=== PATIENT | male | born 1940 | race Caucasian/White ===

== ENCOUNTER → 2017-01-08 | Outpatient (REF) | payer OTHER | LOC: M LABNEURO 17:14 | PROVIDERS: ATTEND Psychiatry & Neurology Neurology | DX: R53.1 Weakness (principal) ==

== ENCOUNTER → 2017-02-19 | Outpatient (REF) | payer OTHER ==
[2017-02-19 14:12] LABS: TOTAL PROTEIN,RANDOM URINE 31.3 MG/DL (0.0-12.0)
== END ==
LOC: M LAB REF 13:33
DX: R80.9 Proteinuria, unspecified (principal); N18.3 Chronic kidney disease, stage 3 (moderate)

== ENCOUNTER → 2017-02-19 | Outpatient (REF) | payer OTHER ==
[2017-02-19 20:17] LABS: TOTAL PROTEIN,RANDOM URINE 31.3 MG/DL (0.0-12.0); URINE TOTAL PROTEIN 31.3 MG/DL (0-12)
[2017-02-19 20:32] LABS: TOTAL PROTEIN 7.9 GM/DL (6.4-8.2)
[2017-02-20 11:53] LABS: ALBUMIN 4.41 GM/DL (3.29-5.55); ALBUMIN % 55.8 % (55.8-66.1); ALPHA-1-GLOBULIN % 5.4 % (2.9-4.9); ALPHA-1-GLOBULINS 0.43 GM/DL (0.17-0.41); ALPHA-2-GLOBULINS 1.07 GM/DL (0.42-0.99); ALPHA-2-GLOBULINS % 13.6 % (7.1-11.8); BETA-1-GLOBULINS 0.56 GM/DL (0.28-0.60); BETA-1-GLOBULINS % 7.1 % (4.7-7.2); BETA-2-GLOBULINS 0.51 GM/DL (0.19-0.55); BETA-2-GLOBULINS % 6.5 % (3.2-6.5); GAMMA GLOBULIN % 11.6 % (11.1-18.8); GAMMA GLOBULINS 0.92 GM/DL (0.65-1.58)
[2017-02-20 13:25] LABS: UPEP INTERPRETATION NO M-SPIKE NOTED; URINE VOLUME RANDOM ML
== END ==
LOC: M LAB REF 17:38
DX: N18.3 Chronic kidney disease, stage 3 (moderate) (principal); R80.9 Proteinuria, unspecified; E83.52 Hypercalcemia
CPT/HCPCS: 84165

== ENCOUNTER → 2017-08-12 | Outpatient (REF) | payer OTHER ==
[2017-08-12 20:00] LABS: FERRITIN 344 NG/ML (26-388); IRON (FE) 88 UG/DL (65-175); PERCENT SATURATION 31.5 % (19.7-50.0); TOTAL IRON BINDING CAPACITY 279 UG/DL (250-450)
== END ==
LOC: M LAB REF 17:17
DX: D53.9 Nutritional anemia, unspecified (principal)
CPT/HCPCS: 83550

== ENCOUNTER → 2019-01-22 | Outpatient (REF) | LOC: M LAB LCGH 14:26 | PROVIDERS: ATTEND Internal Medicine | DX: L89.610 Pressure ulcer of right heel, unstageable (principal) ==